=== PATIENT | female | born 1980 | race Hispanic/Latino ===

== ENCOUNTER 2023-04-24 08:49 | Observation (INO) | payer MEDICAID ==
[2023-04-22 11:21] LABS: BASOPHILS % (AUTO) 0.4 % (0.0-5.0); EOSINOPHILS % (AUTO) 2.3 % (0.0-8.0); HEMATOCRIT 42.3 % (36-48); LYMPHOCYTES % (AUTO) 22.9 % (21.0-51.0); MEAN CORPUSCULAR HEMOGLOBIN 27.6 pg (27.0-33.0); MEAN CORPUSCULAR HGB CONC 32.4 g/dL (32.0-36.0); MEAN CORPUSCULAR VOLUME 85.3 fL (79-99); MONOCYTES % (AUTO) 5.7 % (3.0-13.0); NEUTROPHILS % (AUTO) 68.4 % (40.0-77.0); PLATELET COUNT (AUTO) 241 K/uL (130-400); RED BLOOD CELL COUNT(AUTO) 4.96 MIL/uL (4.00-5.50); RED CELL DISTRIBUTION WIDTH 13.1 % (11.0-15.5); WHITE BLOOD COUNT (AUTO) 7.3 K/uL (4.8-10.8)
[2023-04-22 12:48] VITALS: BP 104/67
[2023-04-24] VITALS (28 sets, daily range): BP systolic 106–138; BP diastolic 57–87
[~2023-04-24] VITALS: Ht 157.5 cm; Wt 88.2 kg
[~2023-04-24 08:49] MED LIST: 0.9%NACL 1000ML 1,000 ML IV SCH; CEFAZOLIN SODIUM 2 GM VIAL IVPB SCH
[2023-04-24] MEDS ORDERED: LACTATED RINGERS 1000ML 1,000 ML IV ONE (09:32)
[2023-04-24] MEDS ORDERED: FAMOTIDINE 20MG VIAL IV ONE (11:13)
[2023-04-24] MEDS ORDERED: MIDAZOLAM HCL 1 MG/ML 2ML VIAL ONE (11:18)
[2023-04-24] MEDS ORDERED: GLYCOPYRROLATE 1 MG/5 ML SYRINGE ONE (11:20)
[2023-04-24] MEDS ORDERED: LIDOCAINE PF 100MG/5ML (2%) SYRINGE 5ML ONE (11:20)
[2023-04-24] MEDS ORDERED: PROPOFOL 10 MG/ML 20ML VIAL IV ONE (11:20)
[2023-04-24] MEDS ORDERED: ROCURONIUM 10MG/1ML SYR 10 MG/ML ML ONE (11:20)
[2023-04-24] MEDS ORDERED: FENTANYL CITRATE PF 50 MCG/1 ML 2ML VIAL ONE ×4 (11:21→13:47)
[2023-04-24] MEDS ORDERED: CEFAZOLIN SODIUM 2 GM VIAL IVPB ONE (11:40)
[2023-04-24] MEDS ORDERED: ONDANSETRON 4MG INJ ONE ×2 (11:50→13:27)
[2023-04-24] MEDS ORDERED: DEXAMETHASONE SOD PHOSPHATE 4 MG/ML 1ML VIAL ONE (12:40)
[2023-04-24] MEDS ORDERED: NEOSTIGMINE 5MG/5ML SYR IV ONE (12:40)
[2023-04-24] MEDS ORDERED: HYDROMORPHONE 1 MG INJ ONE ×2 (12:56→13:38)
[2023-04-24] MEDS ORDERED: MEPERIDINE-PF 25 MG/ML SYG ONE (13:27)
[2023-04-24] MEDS ORDERED: CALDOLOR 800MG+NS 250ML 250 ML IV ONE (13:53)
[2023-04-24] MEDS ORDERED: ACETAMINOPHEN WITH CODEINE 1 TAB TAB PO PRN (15:30)
[2023-04-24] MEDS: MORPHINE 4 MG SYG IVP PRN (16:16)
[2023-04-24] MEDS: CEFAZOLIN SODIUM 2 GM VIAL IVPB SCH (20:41)
[2023-04-24] MEDS: KETOROLAC 15MG/ML VIAL (15MG/ML) IV PRN (20:42)
[2023-04-24] MEDS: LACTATED RINGERS 1000ML 1,000 ML IV SCH (20:46)
[2023-04-25] VITALS: BP 117/70
[2023-04-25] MEDS: KETOROLAC 15MG/ML VIAL (15MG/ML) IV PRN ×3 (00:54→10:46)
[2023-04-25 04:00] VITALS: BP 108/86
[2023-04-25] MEDS: CEFAZOLIN SODIUM 2 GM VIAL IVPB SCH (04:23)
[2023-04-25] MEDS: LACTATED RINGERS 1000ML 1,000 ML IV SCH ×3 (04:24→23:42)
[2023-04-25 04:35] LABS: BASOPHILS % (AUTO) 0.2 % (0.0-5.0); EOSINOPHILS % (AUTO) 0.1 % (0.0-8.0); LYMPHOCYTES % (AUTO) 18.1 % (21.0-51.0); MEAN CORPUSCULAR HEMOGLOBIN 27.9 pg (27.0-33.0); MEAN CORPUSCULAR HGB CONC 32.3 g/dL (32.0-36.0); MEAN CORPUSCULAR VOLUME 86.4 fL (79-99); MONOCYTES % (AUTO) 7.2 % (3.0-13.0); PLATELET COUNT (AUTO) 204 K/uL (130-400); RED BLOOD CELL COUNT(AUTO) 4.63 MIL/uL (4.00-5.50); RED CELL DISTRIBUTION WIDTH 13.2 % (11.0-15.5); WHITE BLOOD COUNT (AUTO) 9.5 K/uL (4.8-10.8)
[2023-04-25 04:59] LABS: ALBUMIN 3.6 g/dL (3.5-5.0); CREATININE 0.8 mg/dL (0.5-1.5); POTASSIUM 4.1 mmol/L (3.5-5.1); TOTAL PROTEIN, SERUM 7.1 g/dL (6.0-8.3)
[2023-04-25 08:00] VITALS: BP 110/74
[2023-04-25] MEDS: MORPHINE 4 MG SYG IVP PRN ×2 (08:49→21:10)
[2023-04-25 12:00] VITALS: BP 100/67
[2023-04-25 16:00] VITALS: BP 115/71
[2023-04-25] MEDS ORDERED: TRAMADOL HCL 50 MG TABLET PO PRN (18:30)
[2023-04-25 20:00] VITALS: BP 146/65
[2023-04-25] MEDS: SIMETHICONE 80 MG TAB.CHEW PO SCH (20:21)
[2023-04-25] MEDS: IBUPROFEN 800 MG TAB PO PRN (21:23)
[2023-04-25] MEDS ORDERED: KETOROLAC 30MG VIAL (30MG/ML) IVP PRN (22:30)
[2023-04-26 00:11] VITALS: BP 140/70
[2023-04-26] MEDS: IBUPROFEN 800 MG TAB PO PRN ×2 (03:15→11:44)
[2023-04-26 03:48] VITALS: BP 140/75
[2023-04-26 08:00] VITALS: BP 111/71
[2023-04-26] MEDS: SIMETHICONE 80 MG TAB.CHEW PO SCH ×2 (08:27→15:34)
[2023-04-26 12:00] VITALS: BP 114/81
[2023-04-26] MEDS ORDERED: DOCUSATE SODIUM 100 MG CAP PO SCH (15:30)
== END 2023-04-26 17:05 | disposition home or self-care (01) ==
LOC: DAH 08:49 → DAHIP 08:50 → 4BH 16:25
PROVIDERS: ADMIT Surgery; ATTEND Surgery
DX: K43.2 Incisional hernia without obstruction or gangrene (principal); Z20.822 Contact with and (suspected) exposure to COVID-19; K81.2 Acute cholecystitis with chronic cholecystitis; K29.70 Gastritis, unspecified, without bleeding; Z79.899 Other long term (current) drug therapy; Z98.890 Other specified postprocedural states; Z98.891 History of uterine scar from previous surgery
CPT/HCPCS: 85025 ×2; 87426; 49593; 47600; 96365; 96375; 36415 ×2; 96376 ×2; 96366; 80053; 84703; A6260; G0378 ×49; A4663; J7120 ×2; A4452; A4344; A4649 ×2; S0028; J3010 ×4; J1170 ×2; J3490 ×3; J2710; J2250; J2405 ×2; J2270 ×3; J1100; J2175; J1885 ×5; J1741; J0690 ×4; C1781; A4930; A4215; A4223; A4222; A4221; A4600; J2001; J2704

== ENCOUNTER 2024-07-29 05:19 | Emergency (ER) | payer SELFPAY ==
[~2024-07-29] VITALS: Ht 157.5 cm; Wt 91.2 kg
[2024-07-29 05:42] LABS: ADD UA MICROSCOPIC YES; APPEARANCE,URINE CLOUDY (CLEAR); BILIRUBIN,URINE NEGATIVE (NEGATIVE); COLOR,URINE LIGHT-YELLOW (YELLOW); GLUCOSE, URINE (UA) NEGATIVE (NEGATIVE); KETONES,URINE NEGATIVE (NEGATIVE); LEUKOCYTE ESTERASE ,URINE 250 Leu/uL (NEGATIVE); NITRATE,URINE NEGATIVE (NEGATIVE); OCCULT BLOOD,URINE SMALL (NEGATIVE); PROTEIN,URINE 10 mg/dL (NEGATIVE); UROBILINOGEN,URINE 0.2 mg/dL (0.2-1.0)
[2024-07-29 05:44] LABS: BACTERIA,URINE RARE /HPF (None Seen); MUCUS,URINE RARE LPF (None Seen); SQUAMOUS EPITHELIAL CELL,UR MOD /HPF (0-2)
[2024-07-29] MEDS ORDERED: ACET-66 PO (06:25)
[2024-07-29] MEDS ORDERED: CEPH500B PO (06:25)
[2024-07-29] MEDS ORDERED: IBUP-2070 PO (06:25)
[2024-07-29] MEDS: ketOROlac 15MG/ML VIAL (15MG/ML) IV ONE (06:41)
[2024-07-29] MEDS: acetaMINOPHEN 500 MG TABLET PO ONE (06:49)
[2024-07-29 06:50] LABS: BASOPHILS # (AUTO) 0.02 K/uL (0.00-0.20); BASOPHILS % (AUTO) 0.3 % (0.0-5.0); EOSINOPHILS # (AUTO) 0.31 K/uL (0.00-0.70); EOSINOPHILS % (AUTO) 4.7 % (0.0-8.0); HEMATOCRIT 40.5 % (36-48); IMMATURE GRANULOCYTE ABSOLUTE 0.05 K/uL (0-1); LYMPHOCYTES % (AUTO) 15.4 % (21.0-51.0); MEAN CORPUSCULAR HEMOGLOBIN 27.9 pg (27.0-33.0); MEAN CORPUSCULAR HGB CONC 33.1 g/dL (32.0-36.0); MEAN CORPUSCULAR VOLUME 84.4 fL (79-99); MONOCYTES # (AUTO) 0.4 K/uL (0.1-1.0); MONOCYTES % (AUTO) 6.2 % (3.0-13.0); NEUTROPHILS # (AUTO) 4.8 K/uL (1.8-7.7); NEUTROPHILS % (AUTO) 72.6 % (40.0-77.0); PLATELET COUNT (AUTO) 222 K/uL (130-400); RED CELL DISTRIBUTION WIDTH 13.2 % (11.0-15.5); WHITE BLOOD COUNT (AUTO) 6.6 K/uL (4.8-10.8)
[2024-07-29] MEDS: cefTRIAXone 1G VIAL IVPB ONE (06:55)
[2024-07-29 07:03] LABS: POTASSIUM 4.1 mmol/L (3.5-5.1)
[2024-07-29 07:34] VITALS: BP 132/80; PULSE 70; RESP 16; TEMP 98; O2SAT 99
== END 2024-07-29 07:34 | disposition home or self-care (01) ==
LOC: EDH 05:19
DX: N39.0 Urinary tract infection, site not specified (principal); E11.9 Type 2 diabetes mellitus without complications; Z88.5 Allergy status to narcotic agent; Z90.710 Acquired absence of both cervix and uterus; Z90.49 Acquired absence of other specified parts of digestive tract; Z98.890 Other specified postprocedural states
CPT/HCPCS: 99284; 96365; 96375; 80048; 83690; 85025; 87086; 81001; 36415; J0696; J1885

== ENCOUNTER 2024-08-11 22:58 | Emergency (ER) | payer SELFPAY ==
[~2024-08-11] VITALS: Ht 157.5 cm; Wt 90.7 kg
[~2024-08-11 22:58] MED LIST changes: -0.9%NACL 1000ML 1,000 ML IV SCH; +ACET-66 PO; -CEFAZOLIN SODIUM 2 GM VIAL IVPB SCH; +CEPH500B PO; +IBUP-2070 PO
[2024-08-11 23:32] LABS: APPEARANCE,URINE CLEAR (CLEAR); BILIRUBIN,URINE NEGATIVE (NEGATIVE); COLOR,URINE COLORLESS (YELLOW); GLUCOSE, URINE (UA) NEGATIVE (NEGATIVE); KETONES,URINE NEGATIVE (NEGATIVE); LEUKOCYTE ESTERASE ,URINE 25 Leu/uL (NEGATIVE); NITRATE,URINE NEGATIVE (NEGATIVE); OCCULT BLOOD,URINE SMALL (NEGATIVE); PH,URINE 5.5 (5.0-8.0); PROTEIN,URINE NEGATIVE (NEGATIVE); SQUAMOUS EPITHELIAL CELL,UR RARE /HPF (0-2); UROBILINOGEN,URINE 0.2 mg/dL (0.2-1.0)
[2024-08-11 23:37] LABS: BASOPHILS # (AUTO) 0.02 K/uL (0.00-0.20); BASOPHILS % (AUTO) 0.2 % (0.0-5.0); EOSINOPHILS # (AUTO) 0.28 K/uL (0.00-0.70); EOSINOPHILS % (AUTO) 3.4 % (0.0-8.0); HEMATOCRIT 40.4 % (36-48); IMMATURE GRANULOCYTE ABSOLUTE 0.03 K/uL (0-1); LYMPHOCYTES # (AUTO) 2.1 K/uL (1.0-4.8); LYMPHOCYTES % (AUTO) 25.1 % (21.0-51.0); MEAN CORPUSCULAR HEMOGLOBIN 28.2 pg (27.0-33.0); MEAN CORPUSCULAR HGB CONC 33.7 g/dL (32.0-36.0); MEAN CORPUSCULAR VOLUME 83.8 fL (79-99); MONOCYTES # (AUTO) 0.6 K/uL (0.1-1.0); MONOCYTES % (AUTO) 6.8 % (3.0-13.0); NEUTROPHILS # (AUTO) 5.4 K/uL (1.8-7.7); NEUTROPHILS % (AUTO) 64.1 % (40.0-77.0); PLATELET COUNT (AUTO) 239 K/uL (130-400); RED BLOOD CELL COUNT(AUTO) 4.82 MIL/uL (4.00-5.50); RED CELL DISTRIBUTION WIDTH 13.4 % (11.0-15.5); WHITE BLOOD COUNT (AUTO) 8.3 K/uL (4.8-10.8)
[2024-08-11 23:44] VITALS: TEMP 98.7
[2024-08-11 23:57] LABS: POTASSIUM 4.4 mmol/L (3.5-5.1)
[2024-08-12 00:02] LABS: ALBUMIN 3.6 g/dL (3.5-5.0); BILIRUBIN,DIRECT 0.1 mg/dL (0.0-0.3); BILIRUBIN,TOTAL 0.2 mg/dL (0.2-1.0); TOTAL PROTEIN, SERUM 7.5 g/dL (6.0-8.3)
[2024-08-12] MEDS ORDERED: MACR100 PO (01:16)
[2024-08-12] MEDS ORDERED: ESTR42.53 VG (01:16)
[2024-08-12] MEDS ORDERED: KETO10TA2 PO (01:34)
[2024-08-12] MEDS: ondanSETRON 4MG INJ IVP ONE (01:42)
[2024-08-12] MEDS: ketOROlac 15MG/ML VIAL (15MG/ML) IV ONE (01:42)
[2024-08-12] MEDS: FAMOTIDINE 20MG VIAL IV ONE (01:42)
[2024-08-12 01:46] VITALS: BP 110/62; PULSE 85; RESP 18; O2SAT 100
[2024-08-12] MEDS ORDERED: ONDA-243 PO (02:00)
== END 2024-08-12 02:08 | disposition home or self-care (01) ==
LOC: EDH 22:58
DX: N39.0 Urinary tract infection, site not specified (principal); N89.9 Noninflammatory disorder of vagina, unspecified; E11.9 Type 2 diabetes mellitus without complications; F41.9 Anxiety disorder, unspecified; F32.A Depression, unspecified; Z88.5 Allergy status to narcotic agent; Z79.899 Other long term (current) drug therapy; Z90.710 Acquired absence of both cervix and uterus; Z90.49 Acquired absence of other specified parts of digestive tract
CPT/HCPCS: 99285; 74176; 80076; 80048; 83690; 85025; 81001; 36415; 96374; 96375; J3490; J2405; J1885